=== PATIENT | male | born 1975 | race Caucasian/White ===

== ENCOUNTER 2018-05-26 10:43 | Emergency (ER) | payer SELFPAY ==
--- NOTE | 2018-05-26 11:43 | EDPHYS ---
Physician Documentation [facility] Name: Quintin Fuller Age: 42 yrs Sex: Male : 1975 Arrival Date: 05/26/2018 Time: 10:51 Bed 12 Private MD: Masood Acosta E ED Physician García Daugherty HPI: 05/26 11:41 This 42 yrs old Male presents to ER via Ambulatory with complaints of Rash. snw 11:41 The patient's rash thought to be caused by Psoriasis Dermatitis. The rash is located on snw the body diffusely. Onset: The symptoms/episode began/occurred sudden worsening over past two weeks. Pt does not see derm and denies changes to skin care, detergents, or new foods. Associated signs and symptoms: Pertinent positives: burning sensation, itching. Severity of symptoms: At their worst the symptoms were severe in the emergency department the symptoms are unchanged. Treatment given at home: none. It is unknown whether or not the patient has had similar symptoms in the past. The patient has not recently seen a physician. Historical: - Allergies: 11:14 No Known Allergies; aa5 - PMHx: 11:14 Psoriasis; aa5 - PSHx: 11:14 None; aa5 - Immunization history:: Flu vaccine is not up to date. - Social history:: Smoking status: Patient/guardian denies using tobacco. - Ebola Screening: : No symptoms or risks identified at this time. ROS: 11:36 Constitutional: Negative for fever, chills, and weight loss, Eyes: Negative for injury, snw pain, redness, and discharge, ENT: Negative for injury, pain, and discharge, Neck: Negative for injury, pain, and swelling, Cardiovascular: Negative for chest pain, palpitations, and edema, Respiratory: Negative for shortness of breath, cough, wheezing, and pleuritic chest pain, Abdomen/GI: Negative for abdominal pain, nausea, vomiting, diarrhea, and constipation, Back: Negative for injury and pain, : Negative for injury, bleeding, discharge, and swelling, MS/Extremity: Negative for injury and deformity, Neuro: Negative for headache, weakness, numbness, tingling, and seizure, Psych: Negative for depression, anxiety, suicide ideation, homicidal ideation, and hallucinations. 11:36 Skin: Positive for rash, of the generalized psoriasis with exacerbation to upper torso and bilateral upper extremities. Exam: 11:27 Constitutional: This is a well developed, well nourished patient who is awake, alert, snw and in no acute distress. Head/Face: Normocephalic, atraumatic. Eyes: Pupils equal round and reactive to light, extra-ocular motions intact. Lids and lashes normal. Conjunctiva and sclera are non-icteric and not injected. Cornea within normal limits. Periorbital areas with no swelling, redness, or edema. ENT: Nares patent. No nasal discharge, no septal abnormalities noted. Tympanic membranes are normal and external auditory canals are clear. Oropharynx with no redness, swelling, or masses, exudates, or evidence of obstruction, uvula midline. Mucous membranes moist. Neck: Trachea midline, no thyromegaly or masses palpated, and no cervical lymphadenopathy. Supple, full range of motion without nuchal rigidity, or vertebral point tenderness. No Meningismus. Chest/axilla: Normal chest wall appearance and motion. Nontender with no deformity. No lesions are appreciated. Cardiovascular: Regular rate and rhythm with a normal S1 and S2. No gallops, murmurs, or rubs. Normal PMI, no JVD. No pulse deficits. Respiratory: Lungs have equal breath sounds bilaterally, clear to auscultation and percussion. No rales, rhonchi or wheezes noted. No increased work of breathing, no retractions or nasal flaring. Abdomen/GI: Soft, non-tender, with normal bowel sounds. No distension or tympany. No guarding or rebound. No evidence of tenderness throughout. Back: No spinal tenderness. No costovertebral tenderness. Full range of motion. MS/ Extremity: Pulses equal, no cyanosis. Neurovascular intact. Full, normal range of motion. Neuro: Awake and alert, GCS 15, oriented to person, place, time, and situation. Cranial nerves II-XII grossly intact. Motor strength 5/5 in all extremities. Sensory grossly intact. Cerebellar exam normal. Normal gait. 11:27 Skin: Appearance: Color: pink, Temperature: warm, Moisture: dry, large psoriatic patches that are almost confluent, left arm with mild erythema, right arm with almost greenish appearance to plaques. 11:27 Psych: Behavior/mood is pleasant, cooperative, anxious. Vital Signs: 11:14 BP 160 / 102; Pulse 100; Resp 18 S; Temp 99.6(O); Pulse Ox 100% on R/A; Weight 68.04 kg aa5 (R); Height 5 ft. 7 in. (170.18 cm); Pain 10/10; 11:14 Body Mass Index 23.49 (68.04 kg, 170.18 cm) aa5 MDM: 11:26 Patient medically screened. snw 11:27 Data reviewed: vital signs, nurses notes. Data interpreted: Pulse oximetry: on room air snw is 100 %. Interpretation: normal. Administered Medications: 11:50 Drug: Pepcid 20 mg Route: PO; iw 12:05 Follow up: Response: No adverse reaction aa5 11:55 Drug: Tetanus-Diphtheria Toxoid Adult 0.5 ml {Patient Financial Advocate: [employer]. Exp: iw 11/12/2019. Lot #: [id number]. } Route: IM; Site: left deltoid; 12:05 Follow up: Response: No adverse reaction aa5 11:58 Drug: Bactrim (160 mg-800 mg (DS) 1 tablet Route: PO; iw 12:05 Follow up: Response: No adverse reaction aa5 11:58 Drug: Hibiclens 4 % 1 application Route: Topical; Site: affected area; iw 11:58 Drug: predniSONE 60 mg Route: PO; iw 12:05 Follow up: Response: No adverse reaction aa5 11:58 Drug: Atarax 25 mg Route: PO; iw 12:05 Follow up: Response: No adverse reaction aa5 11:58 Drug: [place] 5 mg-325 mg 1 tabs Route: PO; iw 12:05 Follow up: Response: No adverse reaction aa5 Disposition: 17:13 Co-signature as Attending Physician, García Daugherty MD. rn Disposition: 05/26/18 11:43 Discharged to Home. Impression: Psoriasis, Cellulitis of left upper limb, Cellulitis of right upper limb. - Condition is Stable. - Discharge Instructions: Cellulitis, Adult, Psoriasis, VIS, Tetanus, Diphtheria (Td) - CDC. - Prescriptions for Vistaril 25 mg Oral capsule - take 1 capsule by ORAL route 3 times per day; 30 capsule. Bactrim DS 800- 160 mg Oral Tablet - take 1 tablet by ORAL route every 12 hours for 10 days; 20 tablet. Prednisone 20 mg Oral Tablet - take 2 tablet by ORAL route once daily for 5 days; 10 tablet. Pepcid 20 mg Oral Tablet - take 1 tablet by ORAL route once daily; 20 tablet. - Medication Reconciliation Form, Thank You Letter, Antibiotic Education, Prescription Opioid Use form. - Follow up: Masood Acosta MD; When: Tomorrow; Reason: Recheck today's complaints, Continuance of care, Re-evaluation by your physician. Follow up: Emergency Department; When: As needed; Reason: Worsening of condition. Signatures: Tatiana Thornton, MANAGER ESTATE-C MANAGER ESTATE-Csnw Juhi Womack, CALLIE RN García Price MD MD rn Calderon, Audri, RN RN aa5 Corrections: (The following items were deleted from the chart) 12:07 11:43 05/26/2018 11:43 Discharged to Home. Impression: Psoriasis; Cellulitis of left iw upper limb; Cellulitis of right upper limb. Condition is Stable. Forms are Medication Reconciliation Form, Thank You Letter, Antibiotic Education, Prescription Opioid Use. Follow up: Masood Acosta; When: Tomorrow; Reason: Recheck today's complaints, Continuance of care, Re-evaluation by your physician. Follow up: Emergency Department; When: As needed; Reason: Worsening of condition. snw
--- NOTE | 2018-05-26 11:43 | ER ---
Nurse's Notes [facility] Name: Quintin Fuller Age: 42 yrs Sex: Male : 1975 Arrival Date: 05/26/2018 Time: 10:51 Bed 12 Private MD: Masood Acosta E Diagnosis: Psoriasis;Cellulitis of left upper limb;Cellulitis of right upper limb Presentation: 05/26 11:13 Presenting complaint: Patient states: rash that it's itchy x 1 week ago to nacho arms, aa5 chest, and back. Transition of care: patient was not received from another setting of care. Onset of symptoms was April 2018. Risk Assessment: Do you want to hurt yourself or someone else? Patient reports no desire to harm self or others. Initial Sepsis Screen: Does the patient meet any 2 criteria? No. Patient's initial sepsis screen is negative. Does the patient have a suspected source of infection? No. Patient's initial sepsis screen is negative. Care prior to arrival: None. 11:13 Method Of Arrival: Ambulatory aa5 11:13 Acuity: CHRISTIANA 5 aa5 Historical: - Allergies: 11:14 No Known Allergies; aa5 - PMHx: 11:14 Psoriasis; aa5 - PSHx: 11:14 None; aa5 - Immunization history:: Flu vaccine is not up to date. - Social history:: Smoking status: Patient/guardian denies using tobacco. - Ebola Screening: : No symptoms or risks identified at this time. Screenin:20 Abuse screen: Denies threats or abuse. Nutritional screening: No deficits noted. aa5 Tuberculosis screening: No symptoms or risk factors identified. Fall Risk None identified. Assessment: 11:20 General: Appears uncomfortable, Behavior is calm, cooperative. Pain: Complains of pain aa5 in back, chest, arms Quality of pain is described as burning. Neuro: Level of Consciousness is awake, alert, obeys commands, Oriented to person, place, time, situation. Respiratory: Airway is patent Respiratory effort is even, unlabored, Respiratory pattern is regular, symmetrical. GI: No signs and/or symptoms were reported involving the gastrointestinal system. : No signs and/or symptoms were reported regarding the genitourinary system. EENT: No signs and/or symptoms were reported regarding the EENT system. Derm: Psoriasis noted to face and neck that is worse to nacho arms, back, and chest. Musculoskeletal: Range of motion: intact in all extremities. 12:05 Neuro: Level of Consciousness is awake, alert, obeys commands, Oriented to person, aa5 place, time, situation. Respiratory: Airway is patent Respiratory effort is even, unlabored, Respiratory pattern is regular, symmetrical. Vital Signs: 11:14 BP 160 / 102; Pulse 100; Resp 18 S; Temp 99.6(O); Pulse Ox 100% on R/A; Weight 68.04 kg aa5 (R); Height 5 ft. 7 in. (170.18 cm); Pain 10/10; 11:14 Body Mass Index 23.49 (68.04 kg, 170.18 cm) aa5 ED Course: 10:51 Patient arrived in ED. mr 10:52 Masood Acosta MD is Private Physician. mr 11:14 Triage completed. aa5 11:14 Arm band placed on. aa5 11:14 Patient has correct armband on for positive identification. aa5 11:16 Paradise Goodwin, CALLIE is Primary Nurse. aa5 11:18 Tatiana Thornton FNP-C is PHCP. snw 11:18 García Daugherty MD is Attending Physician. snw 11:42 Masood Acosta MD is Referral Physician. snw 12:05 Patient did not have IV access during this emergency room visit. aa5 12:05 No provider procedures requiring assistance completed. aa5 Administered Medications: 11:50 Drug: Pepcid 20 mg Route: PO; iw 12:05 Follow up: Response: No adverse reaction aa5 11:55 Drug: Tetanus-Diphtheria Toxoid Adult 0.5 ml {Pasteurizer Helper: [employer]. Exp: iw 11/12/2019. Lot #: [id number]. } Route: IM; Site: left deltoid; 12:05 Follow up: Response: No adverse reaction aa5 11:58 Drug: Bactrim (160 mg-800 mg (DS) 1 tablet Route: PO; iw 12:05 Follow up: Response: No adverse reaction aa5 11:58 Drug: Hibiclens 4 % 1 application Route: Topical; Site: affected area; iw 11:58 Drug: predniSONE 60 mg Route: PO; iw 12:05 Follow up: Response: No adverse reaction aa5 11:58 Drug: Atarax 25 mg Route: PO; iw 12:05 Follow up: Response: No adverse reaction aa5 11:58 Drug: [place] 5 mg-325 mg 1 tabs Route: PO; iw 12:05 Follow up: Response: No adverse reaction aa5 Outcome: 11:43 Discharge ordered by MD. almeida 12:05 Discharged to home ambulatory. aa5 12:05 Condition: stable 12:05 Discharge instructions given to patient, Instructed on discharge instructions, follow up and referral plans. medication usage, Demonstrated understanding of instructions, follow-up care, medications, Prescriptions given X 4. 12:07 Patient left the ED. iw Signatures: Tatiana Thornton, MAIN ENTREE COOK AND CASHIER-C MAIN ENTREE COOK AND CASHIER-Csnw Holly Kelley mr Juhi Womack RN RN iw Paradise Goodwin RN RN aa5 Corrections: (The following items were deleted from the chart) 11:17 11:13 Presenting complaint: Patient states: rash that it's itchy x 1 week ago to nacho aa5 arms, chest, and back aa5
[2018-05-26] MEDS ORDERED: hydrOXYzine HCl 25 MG TAB ONE (11:54)
[2018-05-26] MEDS ORDERED: TETANUS & DIPHTHERIA TOX,ADULT 0.5 ML VIAL ONE (11:54)
== END 2018-05-26 12:07 | disposition home or self-care (01) ==
LOC: ER 10:43
DX: L40.9 Psoriasis, unspecified (principal); L03.114 Cellulitis of left upper limb; L03.113 Cellulitis of right upper limb
CPT/HCPCS: 90714; 99283

== ENCOUNTER 2018-08-08 11:46 | Emergency (ER) | payer SELFPAY ==
--- NOTE | 2018-08-08 12:48 | ER ---
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 Transition of care: patient was not received from another setting of care. Onset of symptoms was June 2018. Risk Assessment: Do you want to hurt yourself or someone else? Patient reports no desire to harm self or others. Initial Sepsis Screen: Does the patient meet any 2 criteria? No. Patient's initial sepsis screen is negative. Does the patient have a suspected source of infection? No. Patient's initial sepsis screen is negative. Care prior to arrival: None. 12:15 Method Of Arrival: Ambulatory iw 12:15 Acuity: CHRISTIANA 3 iw Historical: - Allergies: 12:17 No Known Allergies; iw - Home Meds: 12:17 None [Active]; iw - PMHx: 12:17 psoriasis; iw - PSHx: 12:17 None; iw - Immunization history:: Last tetanus immunization: up to date. - Social history:: Smoking status: Patient/guardian denies using tobacco. - Ebola Screening: : Patient negative for fever greater than or equal to 101.5 degrees Fahrenheit, and additional compatible Ebola Virus Disease symptoms Patient denies exposure to infectious person Patient denies travel to an Ebola-affected area in the 21 days before illness onset No symptoms or risks identified at this time. Screenin:35 Abuse screen: Denies threats or abuse. Denies injuries from another. Nutritional ca1 screening: No deficits noted. Tuberculosis screening: No symptoms or risk factors identified. Fall Risk None identified. Assessment: 12:35 General: Appears in no apparent distress. comfortable, Behavior is calm, cooperative, ca1 appropriate for age. Pain: Complains of pain in right leg and left leg Pain does not radiate. Pain currently is 9 out of 10 on a pain scale. Pain began several weeks. Pain: Is intermittent. Neuro: Level of Consciousness is awake, alert, obeys commands, Oriented to person, place, time, situation. Cardiovascular: Heart tones S1 S2 present Capillary refill < 3 seconds Patient's skin is warm and dry. Respiratory: Airway is patent Respiratory effort is even, unlabored, Respiratory pattern is regular, symmetrical, Breath sounds are clear bilaterally. GI: No deficits noted. No signs and/or symptoms were reported involving the gastrointestinal system. : No deficits noted. No signs and/or symptoms were reported regarding the genitourinary system. EENT: No deficits noted. No signs and/or symptoms were reported regarding the EENT system. Derm: Skin with poor turgor Skin is pink, warm \T\ dry. Rash noted that is urticaria, on right leg and left leg. Musculoskeletal: Circulation, motion, and sensation intact. Capillary refill < 3 seconds, Range of motion: intact in all extremities. 13:09 Reassessment: Patient appears in no apparent distress at this time. Patient is alert, ca1 oriented x 3, equal unlabored respirations, skin warm/dry/pink. Vital Signs: 12:16 BP 148 / 105; Pulse 101; Resp 18; Temp 99.1; Pulse Ox 98% ; Weight 68.04 kg; Height 5 iw ft. 6 in. (167.64 cm); Pain 8/10; 13:09 BP 138 / 92; Pulse 98; Resp 16 S; Temp 98.9(O); Pulse Ox 100% on R/A; ca1 12:16 Body Mass Index 24.21 (68.04 kg, 167.64 cm) iw ED Course: 11:50 Patient arrived in ED. as 12:16 Triage completed. iw 12:17 Arm band placed on. iw 12:18 Tyler Castillo PA is PHCP. jr8 12:18 Jonny Salcedo MD is Attending Physician. jr8 12:31 Zayda Ferrera, CALLIE is Primary Nurse. ca1 12:35 Patient has correct armband on for positive identification. Bed in low position. Call ca1 light in reach. Side rails up X 1. Pulse ox on. NIBP on. 13:09 No provider procedures requiring assistance completed. Patient did not have IV access ca1 during this emergency room visit. Administered Medications: No medications were administered Outcome: 12:47 Discharge ordered by . jr8 13:09 Discharged to home ambulatory. ca1 13:09 Condition: stable 13:09 Discharge instructions given to patient, Instructed on discharge instructions, follow up and referral plans. Demonstrated understanding of instructions, follow-up care. 13:10 Patient left the ED. ca1 Signatures: Farzaneh Dawson Irene, RN RN iw Tyler Castillo PA PA jr8 Zayda Ferrera RN RN ca1
--- NOTE | 2018-08-08 12:48 | EDPHYS ---
Physician Documentation [facility] Name: Quintin Fuller Age: 42 yrs Sex: Male : 1975 Arrival Date: 08/08/2018 Time: 11:50 Bed 13 Private MD: ED Physician DenisseCarterJonny HPI: 08/08 14:39 This 42 yrs old Male presents to ER via Ambulatory with complaints of jr8 Drainage from Leg. 14:39 Onset: The symptoms/episode began/occurred gradually, 1 week(s) ago. Modifying factors: jr8 The symptoms are alleviated by nothing. the symptoms are aggravated by nothing. Associated signs and symptoms: The patient has no apparent associated signs or symptoms. Severity of symptoms: At their worst the symptoms were mild, in the emergency department the symptoms are unchanged. The patient has experienced a previous episode. The patient has not recently seen a physician. History of psoriasis and lower extremity swelling. Stated that it is getting better but now starting to swell again and having drainage from legs. Historical: - Allergies: 12:17 No Known Allergies; iw - Home Meds: 12:17 None [Active]; iw - PMHx: 12:17 psoriasis; iw - PSHx: 12:17 None; iw - Immunization history:: Last tetanus immunization: up to date. - Social history:: Smoking status: Patient/guardian denies using tobacco. - Ebola Screening: : Patient negative for fever greater than or equal to 101.5 degrees Fahrenheit, and additional compatible Ebola Virus Disease symptoms Patient denies exposure to infectious person Patient denies travel to an Ebola-affected area in the 21 days before illness onset No symptoms or risks identified at this time. ROS: 14:39 Eyes: Negative for injury, pain, redness, and discharge, ENT: Negative for injury, jr8 pain, and discharge, Neck: Negative for injury, pain, and swelling, Cardiovascular: Negative for chest pain, palpitations, and edema, Respiratory: Negative for shortness of breath, cough, wheezing, and pleuritic chest pain, Abdomen/GI: Negative for abdominal pain, nausea, vomiting, diarrhea, and constipation, Back: Negative for injury and pain, Neuro: Negative for headache, weakness, numbness, tingling, and seizure. 14:39 MS/extremity: Positive for rash, swelling, of the right leg and left leg. Exam: 14:39 Eyes: Pupils equal round and reactive to light, extra-ocular motions intact. Lids and jr8 lashes normal. Conjunctiva and sclera are non-icteric and not injected. Cornea within normal limits. Periorbital areas with no swelling, redness, or edema. ENT: Nares patent. No nasal discharge, no septal abnormalities noted. Tympanic membranes are normal and external auditory canals are clear. Oropharynx with no redness, swelling, or masses, exudates, or evidence of obstruction, uvula midline. Mucous membranes moist. Neck: Trachea midline, no thyromegaly or masses palpated, and no cervical lymphadenopathy. Supple, full range of motion without nuchal rigidity, or vertebral point tenderness. No Meningismus. Cardiovascular: Regular rate and rhythm with a normal S1 and S2. No gallops, murmurs, or rubs. Normal PMI, no JVD. No pulse deficits. Respiratory: Lungs have equal breath sounds bilaterally, clear to auscultation and percussion. No rales, rhonchi or wheezes noted. No increased work of breathing, no retractions or nasal flaring. Abdomen/GI: Soft, non-tender, with normal bowel sounds. No distension or tympany. No guarding or rebound. No evidence of tenderness throughout. Back: No spinal tenderness. No costovertebral tenderness. Full range of motion. Skin: Warm, dry with normal turgor. Normal color with no rashes, no lesions, and no evidence of cellulitis. Neuro: Awake and alert, GCS 15, oriented to person, place, time, and situation. Cranial nerves II-XII grossly intact. Motor strength 5/5 in all extremities. Sensory grossly intact. Cerebellar exam normal. Normal gait. 14:39 Musculoskeletal/extremity: Extremities: grossly normal except: Right and left lower leg. Scaling and plaquing noted to both legs from feet to knee. Some scabbing from excoriation noted with serous oozing. No purulent discharge noted. , ROM: intact in all extremities, Circulation is intact in all extremities. Vital Signs: 12:16 BP 148 / 105; Pulse 101; Resp 18; Temp 99.1; Pulse Ox 98% ; Weight 68.04 kg; Height 5 iw ft. 6 in. (167.64 cm); Pain 8/10; 13:09 BP 138 / 92; Pulse 98; Resp 16 S; Temp 98.9(O); Pulse Ox 100% on R/A; ca1 12:16 Body Mass Index 24.21 (68.04 kg, 167.64 cm) MDM: 12:30 Patient medically screened. jr8 14:43 Data reviewed: vital signs, nurses notes, and as a result, I will discharge patient. jr8 Data interpreted: Pulse oximetry: on room air is 100 %. Interpretation: normal. Counseling: I had a detailed discussion with the patient and/or guardian regarding: the historical points, exam findings, and any diagnostic results supporting the discharge/admit diagnosis, the need for outpatient follow up, a family practitioner, to return to the emergency department if symptoms worsen or persist or if there are any questions or concerns that arise at home. Administered Medications: No medications were administered Disposition: 15:17 Co-signature as Attending Physician, Jonny Salcedo MD. Disposition: 08/08/18 12:47 Discharged to Home. Impression: Psoriasis. - Condition is Stable. - Discharge Instructions: Psoriasis. - Prescriptions for Lasix 20 mg Oral Tablet - take 1 tablet by ORAL route once daily for 3 days; 3 tablet. Betamethasone Dipropionate 0.05 % Topical Cream - apply 1 application by TOPICAL route 2 times per day; 1 tube. - Medication Reconciliation Form, Thank You Letter, Antibiotic Education, Prescription Opioid Use form. - Follow up: Private Physician; When: 2 - 3 days; Reason: Recheck today's complaints, Continuance of care, Re-evaluation by your physician. - Problem is new. - Symptoms have improved. - Notes: Written prescription for betamethasone Signatures: Juhi Womack, CALLIE RN Tyler Castillo PA PA jr8 Jonny Salcedo MD MD Iban, CALLIE Priest RN ca1 Corrections: (The following items were deleted from the chart) 13:10 12:47 08/08/2018 12:47 Discharged to Home. Impression: Psoriasis. Condition is Stable. ca1 Forms are Medication Reconciliation Form, Thank You Letter, Antibiotic Education, Prescription Opioid Use. Follow up: Private Physician; When: 2 - 3 days; Reason: Recheck today's complaints, Continuance of care, Re-evaluation by your physician. Problem is new. Symptoms have improved. jr8
== END 2018-08-08 13:10 | disposition home or self-care (01) ==
LOC: ER 11:46
DX: L40.9 Psoriasis, unspecified (principal)
CPT/HCPCS: 99283